=== PATIENT | female | born 1960 | race Two or more races ===

== ENCOUNTER 2021-08-23 16:42 | Emergency (ER) | payer MEDICAID, OTHER ==
[~2021-08-23] VITALS: Ht 157.5 cm; Wt 54.4 kg
[2021-08-23 16:50] VITALS: BP 123/69
[2021-08-23 17:42] LABS: Urine Bacteria MOD /hpf (None Seen); Urine Blood 2+ /uL (Negative); Urine Mucus FEW (None Seen); Urine Specific Gravity 1.022 (1.001-1.035); Urine WBC 239 /hpf (0 - 5); Urine WBC Clumps PRESENT /hpf (None Seen)
[2021-08-23] MEDS ORDERED: IBUPROFEN 800 MG TAB PO ONE (20:00)
[2021-08-23] MEDS ORDERED: ONDANSETRON ODT 4 MG TAB PO ONE (20:00)
== END 2021-08-23 20:13 | disposition home or self-care (01) ==
LOC: ER 16:42
DX: N39.0 Urinary tract infection, site not specified (principal)
CPT/HCPCS: 81001; 99283; Q0162